=== PATIENT | male | born 1970 | race Caucasian/White ===

== ENCOUNTER 2019-02-02 06:10 | Day surgery (SDC) | payer OTHER | END 2019-02-02 14:00 | disposition home or self-care (01) | LOC: AMB-ENDOS 06:10 | DX: D12.2 Benign neoplasm of ascending colon (principal); D12.3 Benign neoplasm of transverse colon; K64.0 First degree hemorrhoids ==

== ENCOUNTER 2020-08-22 06:00 | Day surgery (SDC) | payer OTHER | END 2020-08-22 11:10 | disposition home or self-care (01) | LOC: AMB-ENDOS 06:00 | PROVIDERS: ATTEND Surgery | DX: K63.5 Polyp of colon (principal); Z20.828 Contact with and (suspected) exposure to other viral communicable diseases ==